=== PATIENT | female | born 1980 | race African-American/Black ===

== ENCOUNTER → 2023-05-30 | Day surgery (SDC) | payer OTHER | END | disposition home or self-care (01) | LOC: JRADUS-SUR 08:14 → JRADIR 08:14 | PROVIDERS: ATTEND Obstetrics & Gynecology | PROC: BU081ZZ Plain Radiography of Uterus and Fallopian Tubes using Low Osmolar Contrast (ICD-10-PCS; principal; 2023-05-30) | DX: Z31.41 Encounter for fertility testing (principal) | CPT/HCPCS: 58340; 74740-TC-FY; 76000-TC-FY; 84703 ==